=== PATIENT | female | born 1965 | race Two or more races ===

== ENCOUNTER 2017-08-03 06:17 | Emergency (ER) | payer BC ==
[2017-08-03 06:31] VITALS: BP 118/105; PULSE 81; TEMP 98.4; BMI 24.7
[2017-08-03 07:45] LABS: URINE APPEARANCE CLEAR; URINE BILIRUBIN NEGATIVE (NEGATIVE); URINE COLOR LT. YELLOW; URINE GLUCOSE (UA) NEGATIVE (NEGATIVE); URINE KETONE NEGATIVE (NEGATIVE); URINE LEUK ESTERASE NEGATIVE (NEGATIVE); URINE NITRITE NEGATIVE (NEGATIVE); URINE PROTEIN NEGATIVE (NEGATIVE); URINE UROBILINOGEN 0.2 mg/dL (0.2-1.0)
[2017-08-03 07:46] LABS: URINE BLOOD TRACE (NEGATIVE)
[2017-08-03 10:27] LABS: URINE BACTERIA RARE /hpf (NONE SEEN); URINE RBC 1 /hpf (0-3); URINE WBC 2 /hpf (3-5)
[2017-08-03 13:12] LABS: URINE LEUK ESTERASE 1+ (NEGATIVE)
== END 2017-08-03 07:10 | disposition left against medical advice (07) ==
LOC: JER 06:17
DX: Z53.21 Procedure and treatment not carried out due to patient leaving prior to being seen by health care provider (principal)
CPT/HCPCS: 81003; 81015; 84703; 87086; 99283-25

== ENCOUNTER 2018-12-24 06:02 | Emergency (ER) | payer BC ==
[2018-12-24 06:42] VITALS: BP 125/74; PULSE 95; TEMP 98.5; BMI 25.6
--- NOTE | 2018-12-24 07:14 | PDOC ---
Attending Attestation - Resident Resident Name: Manju Chavez - ED Attending Attestation I have performed the following: I have examined & evaluated the patient, The case was reviewed & discussed with the resident, I agree w/resident's findings & plan, Exceptions are as noted - HPI HPI: 53 yo F history prior UTIs presents with dysuria, urinary frequency for past few days. She was taking AZO without relief. No fever, vomiting, back pain. + Nausea. +Prior similar symptoms. C/o suprapubic pain. - Physicial Exam PE: GENERAL: Awake, alert, and fully oriented, in no acute distress HEAD: No signs of trauma EYES: PERRLA, EOMI, sclera anicteric, conjunctiva clear ENT: Auricles normal inspection, hearing grossly normal, nares patent, oropharynx clear without exudates. Moist mucosa NECK: Normal ROM, supple, no lymphadenopathy, JVD, or masses LUNGS: Breath sounds equal, clear to auscultation bilaterally. No wheezes, and no crackles HEART: Regular rate and rhythm, normal S1 and S2, no murmurs, rubs or gallops ABDOMEN: Soft, +suprapubic tenderness, normoactive bowel sounds. No guarding, no rebound. No masses. No CVAT EXTREMITIES: Normal range of motion, no edema. No clubbing or cyanosis. No cords, erythema, or tenderness NEUROLOGICAL: Cranial nerves II through XII grossly intact. Normal speech, normal gait. Motor and sensation intact SKIN: Warm, Dry, normal turgor, no rashes or lesions noted. - Medical Decision Making Initial IV site infiltrated prior to my evaluation. I applied a warm pack. Will await labs and urine. Toradol for pain. Likely UTI, stable for DC with outpatient treatment.
[2018-12-24] MEDS ORDERED: KETOROLAC TROMETHAMINE 30 MG/1 ML VIAL IVPUSH ONE (07:33)
[2018-12-24] MEDS ORDERED: KETOROLAC TROMETHAMINE 15 MG/ML VIAL ONE (07:48)
[2018-12-24 08:02] LABS: BASO % 0.8 % (0-2.0); EOS % 2.5 % (0-4.5); HEMATOCRIT 41.2 % (32.4-45.2); HEMOGLOBIN 13.4 GM/dL (10.7-15.3); LYMPH % 17.2 % (8-40); MCHC 32.6 g/dl (32.0-36.0); MEAN CELL VOLUME 79.7 fl (80-96); MEAN PLT VOLUME 7.9 fl (7.5-11.1); MONO % 7.8 % (3.8-10.2); NEUT % 71.7 % (42.8-82.8); PLATELET COUNT 417 K/MM3 (134-434); RBC 5.18 M/mm3 (3.60-5.2); RDW 14.8 % (11.6-15.6)
--- NOTE | 2018-12-24 08:14 | PDOC ---
History of Present Illness - General Chief Complaint: Pain Stated Complaint: UTI Time Seen by Provider: 12/24/18 07:13 History Source: Patient Exam Limitations: No Limitations - History of Present Illness Travel History: No Initial Comments: 12/24/18 08:09 Pt is a 53yo F with PMH of Hypothyroidism, UTIs presenting to ED for uti x2 days. Pt states she started having urinary frequency, urgency, burning and dysuria since Tuesday. She has tried taking OTC Azo but it is not helping. She endorses abdominal cramping and nausea. Denies back pain, fevers, chills, vomiting, diarrhea, chest pain, sob, headaches, weakness, rectal bleeding. PMD: Androne PMH: see hpi PSH: cosmetic Meds: Synthroid Allergies: nkda Past History - Past Medical History Allergies/Adverse Reactions: Allergies Allergy/AdvReac Type Severity Reaction Status Date / Time No Known Allergies Allergy Verified 08/03/17 06:28 Home Medications: Ambulatory Orders Levothyroxine [Synthroid -] 75 mcg PO DAILY 03/12/16 Sulfamethoxazole/Trimethoprim [Bactrim Ds -] 1 tab PO BID #10 tablet 12/24/18 Anemia: No Asthma: No Cancer: No Cardiac Disorders: No CVA: No COPD: No CHF: No Dementia: No Diabetes: No GI Disorders: No Disorders: No HTN: No Hypercholesterolemia: No Liver Disease: No Seizures: No Thyroid Disease: Yes (Hypothyroid) - Suicide/Smoking/Psychosocial Hx Smoking History: Never smoked Have you smoked in the past 12 months: No Hx Alcohol Use: No Drug/Substance Use Hx: No Substance Use Type: None Hx Substance Use Treatment: No Review of Systems - Review of Systems Constitutional: No: Chills, Diaphoresis, Fever HEENTM: No: Symptoms Reported Respiratory: No: Symptoms reported Cardiac (ROS): No: Symptoms Reported ABD/GI: Yes: See HPI, Nausea, Abdominal cramping. No: Diarrhea, Rectal Bleeding , Vomiting, Tarry Stools : Yes: Burning, Dysuria, Frequency, Hematuria, Urgency. No: Flank Pain Musculoskeletal: No: Back Pain, Joint Pain Integumentary: No: Symptoms Reported Neurological: No: Symptoms reported *Physical Exam - Vital Signs Last Vital Signs Temp Pulse Resp BP Pulse Ox 98.5 F 95 H 19 125/74 100 12/24/18 06:05 12/24/18 06:05 12/24/18 06:05 12/24/18 06:05 12/24/18 06:05 - Physical Exam General Appearance: Yes: Nourished, Appropriately Dressed, Mild Distress HEENT: positive: EOMI, RICARDO Neck: positive: Trachea midline, Supple Respiratory/Chest: positive: Lungs Clear, Normal Breath Sounds Cardiovascular: positive: Regular Rhythm, Regular Rate Vascular Pulses: Dorsalis-Pedis (R): 2+, Doralis-Pedis (L): 2+ Gastrointestinal/Abdominal: positive: Normal Bowel Sounds, Tender (slight suprapubic tenderness), Soft Musculoskeletal: negative: CVA Tenderness, CVA Tenderness (R), CVA Tenderness (L ) Extremity: positive: Normal Capillary Refill. negative: Swelling, Calf Tenderness Integumentary: positive: Normal Color, Dry, Warm Neurologic: positive: shoe trimmer II-XII NML intact, Fully Oriented, Alert, Normal Mood/ Affect, Normal Response, Motor Strength 12/24 ED Treatment Course - LABORATORY CBC & Chemistry Diagram: 12/24/18 07:21 12/24/18 07:21 - Medications Given in the ED: ED Medications Discontinued Medications Generic Name Dose Route Start Last Admin Trade Name Freq PRN Reason Stop Dose Admin Ketorolac Tromethamine 15 mg 12/24/18 07:33 12/24/18 07:30 Toradol Injection - IVPUSH 12/24/18 07:34 15 mg ONCE ONE Administration Medical Decision Making - Medical Decision Making 12/24/18 08:14 Pt is a 53yo F with PMH of Hypothyroidism, UTIs presenting to ED for uti x2 days. Pt states she started having urinary frequency, urgency, burning and dysuria since Tuesday. She has tried taking OTC Azo but it is not helping. She endorses abdominal cramping and nausea. Denies back pain, fevers, chills, vomiting, diarrhea, chest pain, sob, headaches, weakness, rectal bleeding. Vitals: wnl, slight tachycardia at 95 PE: slight suprapubic tenderness. No CVA tenderness ddx includes but not limited to uti, pyelo, pid most likely uti given pt symptoms and symptoms feel like previous uti symptoms -labs ordered by night team -toradol for pain previous susceptibilities to Keflex, Bactrim, nitrofurantoin and various other abx. 12/24/18 09:37 UA positive for infection. -Bactrim DS K 5.4 however kidney function normal. pt safe for dc home. has pmd appointment in 2 days. given return precautions and rx for abx. *DC/Admit/Observation/Transfer Diagnosis at time of Disposition: UTI (urinary tract infection) Qualifiers: Urinary tract infection type: site unspecified Hematuria presence: with hematuria Qualified Code(s): N39.0 - Urinary tract infection, site not specified - Discharge Dispostion Disposition: HOME Condition at time of disposition: Improved Decision to Admit order: No - Prescriptions Prescriptions: Sulfamethoxazole/Trimethoprim [Bactrim Ds -] 1 tab PO BID #10 tablet - Referrals Referrals: Mignon Campos [Primary Care Provider] - Angel Nichols MD [Staff Physician] - - Patient Instructions Printed Discharge Instructions: DI for Urinary Tract Infection (UTI) Additional Instructions: You were seen in the emergency room for urinary problems, you have a urinary tract infection. A prescription for an antibiotic was sent to your pharmacy. Please take as directed. Keep yourself well hydrated. Come back to the emergency room if pain worsens, you continue to hae symptoms after antibiotic course, you develop fever, you start having flank pain or if any new concerning symptom develops. Thank you - Post Discharge Activity
[2018-12-24 08:35] LABS: ALBUMIN 4.1 g/dl (3.4-5.0); ALK PHOS 119 U/L (45-117); ANION GAP 7 MMOL/L (8-16); BILIRUBIN,TOTAL 0.6 mg/dL (0.2-1); BLOOD UREA NITROGEN 9 mg/dL (7-18); CALCIUM 9.4 mg/dL (8.5-10.1); CHLORIDE 101 mmol/L (98-107); CO2 28 mmol/L (21-32); CREATININE 0.6 mg/dL (0.55-1.3); GLUCOSE,RANDOM 109 mg/dL (74-106); LIPASE 105 U/L (73-393); PH,URINE 5.5 (5.0-8.0); POTASSIUM 5.4 mmol/L (3.5-5.1); SGOT/AST 34 U/L (15-37); SGPT/ALT 20 U/L (13-61); SODIUM 136 mmol/L (136-145); TOT PROT 7.6 g/dl (6.4-8.2); URINE APPEARANCE CLOUDY; URINE BILIRUBIN NEGATIVE (NEGATIVE); URINE COLOR DK YELLOW; URINE GLUCOSE (UA) NEGATIVE (NEGATIVE); URINE KETONE NEGATIVE (NEGATIVE); URINE LEUK ESTERASE 3+ (NEGATIVE); URINE NITRITE POSITIVE (NEGATIVE); URINE PROTEIN 1+ (NEGATIVE)
[2018-12-24 09:21] LABS: EPI CELLS 1.2 /HPF (0-5/HPF); URINE BACTERIA 217.5 /hpf (NEGATIVE); URINE CASTS 9.02 /lpf (0-8); URINE RBC 11.7 /hpf (0-4); URINE WBC 268.2 /hpf (0-5)
[2018-12-24] MEDS ORDERED: SULFAMETHOXAZOLE/TRIMETHOPRIM 800MG/160MG D.S. TABLET PO ONE (09:25)
[2018-12-24] MEDS ORDERED: SULFAMETHOXAZOLE/TRIMETHOPRIM 800MG/160MG D.S. TABLET ONE (09:33)
== END 2018-12-24 09:30 | disposition home or self-care (01) ==
LOC: JER 06:02
PROC: 3E0333Z Introduction of Anti-inflammatory into Peripheral Vein, Percutaneous Approach (ICD-10-PCS; principal; 2018-12-24)
DX: N39.0 Urinary tract infection, site not specified (principal); E03.9 Hypothyroidism, unspecified
CPT/HCPCS: 36415; 80053; 81003; 83690; 85025; 87086; 87186; 99282-25

== ENCOUNTER 2020-06-11 16:34 | Emergency (ER) | payer BC ==
[2020-06-11] MEDS ORDERED: ACETAMINOPHEN 500 MG TABLET (FP) PO ONE (16:47)
[2020-06-11 16:48] VITALS: BMI 27.4
[2020-06-11] MEDS ORDERED: LACTATED RINGERS SOLUTION 1000 ML INFUS.BAG IV ONE (17:30)
[2020-06-11] MEDS ORDERED: ACETAMINOPHEN 500 MG TABLET (FP) ONE (17:41)
[2020-06-11 17:44] LABS: EOS % 4.3 % (0-4.5); HEMATOCRIT 40.5 % (32.4-45.2); HEMOGLOBIN 12.7 GM/dL (10.7-15.3); LYMPH % 34.9 % (8-40); MCH 25.2 pg (25.7-33.7); MCHC 31.4 g/dl (32.0-36.0); MEAN CELL VOLUME 80.5 fl (80-96); MEAN PLT VOLUME 7.4 fl (7.5-11.1); MONO % 10.1 % (3.8-10.2); NEUT % 49.7 % (42.8-82.8); PLATELET COUNT 416 K/MM3 (134-434); RBC 5.03 M/mm3 (3.60-5.2); RDW 15.7 % (11.6-15.6); WHITE BLOOD COUNT 8.7 K/mm3 (4.0-10.0)
[2020-06-11 17:46] LABS: EPI CELLS 13 /uL (0-25.1); HYALINE CASTS 5 /uL (0-3.1); URINE APPEARANCE CLOUDY; URINE BILIRUBIN 1+ (NEGATIVE); URINE COLOR DK YELLOW; URINE GLUCOSE (UA) NEGATIVE (NEGATIVE); URINE KETONE NEGATIVE (NEGATIVE); URINE LEUK ESTERASE 3+ (NEGATIVE); URINE NITRITE POSITIVE (NEGATIVE); URINE PROTEIN 2+ (NEGATIVE); URINE RBC 3425 /uL (0-23.9); URINE WBC 2378 /uL (0-25.8)
[2020-06-11 18:05] LABS: POTASSIUM 4.8 mmol/L (3.5-5.1)
[2020-06-11] MEDS ORDERED: PHENAZOPYRIDINE HCL 100 MG TABLET (FP) PO ONE (18:05)
[2020-06-11 18:07] LABS: ALBUMIN 3.9 g/dl (3.4-5.0); BLOOD UREA NITROGEN 14.3 mg/dL (7-18); CALCIUM 9.8 mg/dL (8.5-10.1)
[2020-06-11 18:11] LABS: CREATININE 0.6 mg/dL (0.55-1.3)
[2020-06-11 18:12] LABS: BILIRUBIN,TOTAL 0.2 mg/dL (0.2-1)
[2020-06-11 18:13] LABS: TOT PROT 7.4 g/dl (6.4-8.2)
[2020-06-11] MEDS ORDERED: PHENAZOPYRIDINE HCL 100 MG TABLET (FP) ONE (19:39)
[2020-06-11] MEDS ORDERED: cefTRIAXone SODIUM 1 GM VIAL ONE (19:40)
[2020-06-11 19:57] VITALS: BP 110/78; PULSE 86; TEMP 98.7
== END 2020-06-11 19:57 | disposition home or self-care (01) ==
LOC: JER 16:34
DX: R30.0 Dysuria (principal)
CPT/HCPCS: 36415; 74177-TC; 80053; 81003; 85025; 87086; 87186; 99285-25; Q9967

== ENCOUNTER 2021-01-05 10:27 | Emergency (ER) | payer BC ==
[2021-01-05 10:34] VITALS: BP 130/79; PULSE 93; TEMP 98.2; BMI 27.4
[2021-01-05] MEDS ORDERED: KETOROLAC TROMETHAMINE 30 MG/1 ML VIAL IM ONE (11:32)
[2021-01-05] MEDS ORDERED: CYCLOBENZAPRINE HCL 10 MG TABLET (FP) PO ONE (11:32)
[2021-01-05] MEDS ORDERED: CYCLOBENZAPRINE HCL 10 MG TABLET (FP) ONE (11:48)
[2021-01-05] MEDS ORDERED: KETOROLAC TROMETHAMINE 30 MG/1 ML VIAL ONE (11:48)
[2021-01-05 13:02] LABS: EPI CELLS >36 /uL (0-25.1); HYALINE CASTS 0 /uL (0-3.1); URINE APPEARANCE CLEAR; URINE BACTERIA 1638 /uL (0-1359); URINE BILIRUBIN NEGATIVE (NEGATIVE); URINE COLOR YELLOW; URINE GLUCOSE (UA) NEGATIVE (NEGATIVE); URINE KETONE NEGATIVE (NEGATIVE); URINE LEUK ESTERASE 2+ (NEGATIVE); URINE NITRITE NEGATIVE (NEGATIVE); URINE PROTEIN NEGATIVE (NEGATIVE); URINE RBC 13 /uL (0-23.9); URINE UROBILINOGEN 0.2 mg/dL (0.2-1.0); URINE WBC 54 /uL (0-25.8)
== END 2021-01-05 14:04 | disposition home or self-care (01) ==
LOC: JER 10:27
PROC: 3E0233Z Introduction of Anti-inflammatory into Muscle, Percutaneous Approach (ICD-10-PCS; principal; 2021-01-05)
DX: N10 Acute pyelonephritis (principal)
CPT/HCPCS: 81003; 87086; 99284-25